=== PATIENT | female | born 1975 | race Caucasian/White ===

== ENCOUNTER → 2022-07-03 | Outpatient (CLI) | payer OTHER ==
--- NOTE | 2022-07-03 09:11 | US ---
EXAMINATION TYPE: US abdomen complete DATE OF EXAM: 07/03/2022 COMPARISON: NONE CLINICAL HISTORY: R10.9 N92.6 R14.0. Bloating, abdominal pain TECHNIQUE: Multiple sonographic images of the abdomen are obtained. FINDINGS: EXAM MEASUREMENTS: Liver Length: 15.1 cm Gallbladder Wall: 0.2 cm CBD: 0.3 cm Spleen: 7.2 cm Right Kidney: 10.1 x 3.9 x 4.2 cm Left Kidney: 10.5 x 4.7 x 4.4 cm Pancreas: wnl Liver: wnl Gallbladder: no evidence of stones Evidence for sonographic Georges's sign: no CBD: wnl Spleen: wnl Right Kidney: cystic area = 1.0cm Left Kidney: no evidence of hydronephrosis Upper IVC: wnl Abd Aorta: wnl The liver is homogenous. The intrahepatic portion of the IVC and proximal abdominal aorta are within normal limits. There is no evidence of cholelithiasis. Common bile duct is unremarkable. The visu alized portions of the pancreas are homogenous. The spleen is unremarkable. Kidneys are symmetric a nd free of hydronephrosis. No solid renal lesions are seen. IMPRESSION: 1 cm cyst right kidney. Otherwise unremarkable study.
--- NOTE | 2022-07-03 09:12 | US ---
EXAMINATION TYPE: US pelvic complete DATE OF EXAM: 07/03/2022 COMPARISON: NONE CLINICAL HISTORY: R10.9 N92.6 R14.0. irregular menses, pelvic pain TECHNIQUE: Transvaginal (TV) and Transabdominal (TA) . Transabdominal sonographic images of the pel vis were acquired. Transvaginal sonographic images were medically necessary to better assess the fol lowing anatomy: uterus Date of LMP: March 2022 EXAM MEASUREMENTS: Uterus: 8.2 x 3.4 x 4.6 cm Endometrial Stripe: 0.3 cm Right Ovary: 2.7 x 1.4 x 2.1 cm Left Ovary: obscured by overlying gas 1. Uterus: Anteverted Nabothian cysts 2. Endometrium: appears wnl 3. Right Ovary: follicles noted 4. Left Ovary: Obscured by overlying bowel gas 5. Bilateral Adnexa: wnl 6. Posterior cul-de-sac: wnl IMPRESSION: 1. Cervical nabothian cysts.
== END | disposition home or self-care (01) ==
LOC: RADUSWWP 07:34
PROVIDERS: ATTEND Family Medicine
DX: N28.1 Cyst of kidney, acquired (principal); N92.6 Irregular menstruation, unspecified; N88.8 Other specified noninflammatory disorders of cervix uteri; R14.0 Abdominal distension (gaseous)
CPT/HCPCS: 76700; 76830; 76856

== ENCOUNTER 2023-09-02 13:18 | Emergency (ER) | payer OTHER ==
[2023-09-02 14:27] VITALS: RESP 18
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
[2023-09-02 16:16] VITALS: BP 145/79; PULSE 92; TEMP 98.1
== END 2023-09-02 15:50 | disposition home or self-care (01) ==
LOC: EC 13:18
DX: S89.92XA Unspecified injury of left lower leg, initial encounter (principal); F17.200 Nicotine dependence, unspecified, uncomplicated; Z88.2 Allergy status to sulfonamides; Y04.8XXA Assault by other bodily force, initial encounter
CPT/HCPCS: 99283

== ENCOUNTER → 2023-09-05 | Outpatient (CLI) | payer OTHER ==
--- NOTE | 2023-09-05 16:37 | US ---
EXAMINATION TYPE: US venous doppler duplex LE LT DATE OF EXAM: 09/05/2023 2:18 PM COMPARISON: NONE CLINICAL INDICATION: Female, 48 years old with history of R23.3 SPONTANEOUS ECCHYMOSES; Left leg pain s/p injury/ no known prior DVT SIDE PERFORMED: Left TECHNIQUE: The lower extremity deep venous system is examined utilizing real time linear array sonog shireen with graded compression, doppler sonography and color-flow sonography. VESSELS IMAGED: Common Femoral Vein Deep Femoral Vein Greater Saphenous Vein * Femoral Vein Popliteal Vein Small Saphenous Vein * Proximal Calf Veins (* superficial vessels) Results called to Dr. Orantes at time of exam Left Leg: Negative for DVT IMPRESSION: 1. Left lower extremity ultrasound negative for deep venous thrombosis.
== END | disposition home or self-care (01) ==
LOC: RADUSWWP 14:04
PROVIDERS: ATTEND Family Medicine
DX: M79.605 Pain in left leg (principal); R23.3 Spontaneous ecchymoses

== ENCOUNTER → 2023-12-19 | Outpatient (CLI) | payer OTHER ==
--- NOTE | 2023-12-21 18:12 | XR ---
EXAMINATION TYPE: XR cervical spine comp DATE OF EXAM: 12/19/2023 4:45 PM CLINICAL INDICATION: Female, 48 years old with history of M54.2 CERVICAGIA, G89.29, M25.512, R20.0; P HH COMPARISON: None TECHNIQUE: The cervical spine was imaged in frontal, lateral, odontoid and bilateral oblique. FINDINGS: The osseous structures show normal alignment without evidence of an acute fracture. There are osteoph ytes noted throughout the cervical spine on the anterior and lateral aspects of the vertebral bodies. The intervertebral disk spaces are narrowed at multiple levels. Pedicles are intact. Soft tissues a re within normal limits. The odontoid appears intact. IMPRESSION: 1. No fracture or dislocation. 2. Mild degenerative disc disease changes of the cervical spine.
--- NOTE | 2023-12-21 18:13 | XR ---
EXAMINATION TYPE: XR shoulder limited LT DATE OF EXAM: 12/19/2023 4:45 PM CLINICAL INDICATION: Female, 48 years old with history of M54.2 CERVICAGIA, G89.29, M25.512, R20.0; P HH COMPARISON: None TECHNIQUE: XR shoulder limited LT; examined in AP, internally rotated and scapular Y projections. FINDINGS: No evidence of acute osseous pathology, joint dislocation, or soft tissue swelling. The remaining po rtions of the visualized chest are unremarkable. IMPRESSION: No acute osseous pathology.
== END | disposition home or self-care (01) ==
LOC: RADXRMAIN 16:11
PROVIDERS: ATTEND Family Medicine
DX: M50.30 Other cervical disc degeneration, unspecified cervical region (principal); M25.512 Pain in left shoulder; R20.0 Anesthesia of skin
CPT/HCPCS: 72050